=== PATIENT | male | born 1965 | race Caucasian/White ===

== ENCOUNTER 2017-05-01 11:32 | Emergency (ER) | payer OTHER ==
[2017-05-01 11:39] VITALS: BP 149/82
--- NOTE | 2017-05-01 12:15 | ED Physician Documentation ---
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 He gets occasional back spasms, very rarely though. He developed back spasm yesterday without specific inciting activity. It is in the low back and radiates across the back but not further, it does not radiate into the buttocks or the legs. There is no associated weakness, numbness, tingling, saddle anesthesia, or fevers. He tried naproxen which gave him partial but incomplete relief.) Review of Systems Constitutional: reports: Reviewed and negative Throat: reports: Reviewed and negative Cardiac: denies: Chest pain / pressure, Palpitations Respiratory: denies: Dyspnea, Cough GI: denies: Abdominal Pain, Nausea, Vomiting PD PAST MEDICAL HISTORY - Past Medical History Past Medical History: No - Past Surgical History Past Surgical History: No - Present Medications Home Medications: Ambulatory Orders Medication Instructions Recorded Confirmed Cyclobenzaprine [Flexeril] 10 mg PO TID PRN #14 tablet 05/01/17 HYDROcod/ACETAM 5/325 [[place] 5/325] 1 - 2 ea PO Q6H PRN #10 tablet 05/01/17 Naproxen 500 mg PO BID PRN #30 tablet 05/01/17 - Allergies Allergies/Adverse Reactions: Allergies Allergy/AdvReac Type Severity Reaction Status Date / Time No Known Drug Allergies Allergy Verified 05/01/17 11:38 - Social History Does the pt smoke?: No Smoking Status: Never smoker PD ED PE NORMAL - Vitals Vital signs reviewed: Yes - General General: Alert and oriented X 3, No acute distress - Abdomen Abdomen: Normal bowel sounds, Soft, Non tender - Back Back: No spinal TTP, Other (Palpable spasm in the right paralumbar musculature, no midline tenderness.) - Extremities Extremities: Other (The patient has equal and normal Achilles and patellar reflexes bilaterally. Normal sensation in all areas of the legs. Patient denies saddle anesthesia. Normal strength in flexion-extension at the ankles, knees, and flexion of the hips.) - Neuro Neuro: Alert and oriented X 3, Normal speech - Psych Psych: Normal mood, Normal affect Results - Vitals Vitals: Vital Signs - 24 hr 05/01/17 11:36 Temperature 36.4 C L Heart Rate 72 Respiratory 14 Rate Blood Pressure 149/82 H O2 Saturation 100 Oxygen O2 Source Room air PD MEDICAL DECISION MAKING - ED course ED course: The [place] prescription monitoring program was queried with regard to this patient. No concerning findings were found. This patient has seemingly uncomplicated musculoskeletal back pain. The patient has no "red flags." Specifically denies IV drug use, fevers, incontinence, saddle anesthesia. Spinal epidural abscess was considered, given that the patient has no fever, is not diabetic, has no spinal tenderness, does not use IV drugs, and has no bilateral neurologic symptoms, the diagnosis of spinal epidural abscess is considered exceedingly unlikely. Departure - Departure Disposition: 01 Home, Self Care Clinical Impression: Back spasm Condition: Good Record reviewed to determine appropriate education?: Yes Instructions: ED Low Back Pain Injury Prescriptions: Cyclobenzaprine [Flexeril] 10 mg PO TID PRN #14 tablet PRN Reason: Pain Naproxen 500 mg PO BID PRN #30 tablet PRN Reason: Pain HYDROcod/ACETAM 5/325 [[place] 5/325] 1 - 2 ea PO Q6H PRN #10 tablet PRN Reason: Pain Comments: Call your doctor to arrange a follow-up appointment, make the next available appointment. In the interim, return anytime if worse or if new symptoms develop. Your blood pressure was elevated today on check into the emergency department. This does not mean that you have hypertension, it is a common phenomenon to come to the emergency department and have elevated blood pressure. I recommend that she see your primary care physician within the week to have it rechecked when you are feeling better. Do not drink or drive while taking narcotic pain medication. Note that many narcotic pain relievers also contain Tylenol/acetaminophen. Please ensure that your total dose of acetaminophen from all sources does not exceed 3 g (3000 mg) per day. You may get constipated while on this medication. Take a stool softener such as Colace twice a day while you are on it. Also add an [id number] laxative such as senna or MiraLAX on any day that you do not have a bowel movement. If you received a narcotic pain medication or sedative while in the emergency department, do not drive for the next 24 hours. Forms: Activity restrictions
== END 2017-05-01 12:25 | disposition home or self-care (01) ==
LOC: ED 11:32
DX: M62.830 Muscle spasm of back (principal); M54.5 Low back pain; R03.0 Elevated blood-pressure reading, without diagnosis of hypertension
CPT/HCPCS: 99283

== ENCOUNTER 2019-10-03 14:54 | Outpatient (CLI) | payer OTHER ==
[2019-10-03 21:45] VITALS: BP 156/84
--- NOTE | 2019-10-03 21:45 | SLEEP CARE CONSULTATION ---
Information from patient questionnaire entered by Chelsey Garcia. I have reviewed and concur with the information entered by Chelsey Garcia. This document represents the service I personally performed and the decisions made by me, Jayson Tse MD, [facility]. History of Present Illness Reason for Visit: New patient Chief Complaint: reports: Snoring Duration of Symptoms: unknown Usual bedtime: varies with shift work Time it takes to fall asleep: 30 minutes Snores at night: Yes Observed to quit breathing while asleep: No Sleeps alone due to snoring: Yes Number of times waking at night: unknown Reasons for waking at night: reports: Bathroom Toss, Turn, or Twitch while sleeping: No Recalls having dreams: No (rarely) Usually gets out of bed at: varies, depending on shift work Morning headache: No Sleepy or fatigued during the day: No Ever fallen asleep while driving: No Takes day naps: No Dreams during day naps: No Prior sleep studies: No Additional HPI information: I had the pleasure of seeing Mr. Huitron today regarding the possibility of him having a sleep disorder. As you know, he is a 54 year old gentleman who complains of loud snore. He tried an oral appliance that did not work. The patient tells me that he normally goes to bed at variable times because he works shifts. It takes him approximately 30 minutes to fall asleep. He has been told that he snores loudly and irregularly at night. He has never been observed to stop breathing in his sleep. His has to sleep in a separate room. He can recall waking up on the average of 0 times during the night. He has never awakened because of his own snoring, choking, or having to gasp for air. There is not a lot of tossing and turning in his sleep. No somniloquy (sleep talking) or somnambulism (sleep walking). Generally there is no recollection of dreams. In the morning he usually gets up out of the bed at variable times, feeling netiher refreshed or rested. He usually does not have a morning headache. During the day he does not feel sleepy and fatigued. His score on [place] Sleepiness Scale is 10 out of 24. He has never fallen asleep while driving nor has had any accident due to sleepiness. He usually does not take naps during the day. Upon falling asleep during the day he denies having vivid dreams. He has never had sleep paralysis, experienced cataplexy or symptoms of restless leg syndrome. He denies having impaired concentration during the day. 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 Patient is and lives in [place]. Have you smoked in the past 12 months: No Alcohol use: Yes Alcohol amount and frequency: 1/month Caffeine amount and frequency: 3-4/day Allergies and Home Medications Drug allergies reviewed: Yes (NKDA) Home medication list reviewed: Yes (none) Review of Systems Weight gain over past 5 years: 15 Cardiovascular: denies: high blood pressure, palpitations, chest pain, irregular heart rate or pulse, leg or foot swelling, have to sleep sitting up, other Respiratory: denies: shortness of breath, wheeze, sputum production, chronic cough, other Gastrointestinal: denies: heartburn, difficulty swallowing, nausea, vomitting, diarrhea, abdominal pain, other Urinary: denies: incontinence, frequency, urgency, impotence, other Neurological: denies: headaches, seizure, head trauma, disorientation, speech dysfunction, gait or balance problems, fainting or unconsciousness, other Psychiatric: denies: Attention Deficit Hyperactivity, anxiety, depression, mood disorder, claustrophobia, other Ear/Nose/Throat: reports: nose bleeds Endocrine: denies: thyroid disease, history of goiter, sluggishness, too hot or cold, excessive thirst, increased appetite, increased urination, unexplained weakness, other Musculoskeletal: reports: joint pain Immunologic: denies: sneezing, rash, itching, allergies to food or environment, other Physical Exam Vital signs obtained and entered by: Dr. Tse Blood Pressure: 156/84 Cuff size: regular Heart Rate: 93 O2 Saturation: 99 Height: 5 ft 11 in Weight: 220 lb Body Mass Index: 30.7 BMI Classification: Obese Neck circumference: 16.5 Mood/affect: normal HEENT: No craniofacial malformation Nostrils: patent to airflow Turbinates: normal Septum: midline Mouth and throat: narrow oropharynx Soft palate: long Hard palate: normal Uvula: normal Uvula visualization: 25% Mallampati Class III Tongue: enlarged in size with teeth avila on lateral edges Tonsils: small Chin and jaw: normal size and position Neck: normal w/o lymphadenopathy or thyromegaly Heart: regular rate and rhythm Lungs: clear bilaterally Abdomen: soft, non-tender Extremities: 1+ edema Neurologic: intact, no focal deficits Impression and Plan IMPRESSION: 1. Obstructive Sleep Apnea-Hypopnea Syndrome, as suggested by history of loud and irregular snoring and unrefreshed sleep. Narrow oropharynx and obesity are common predisposing factors for obstructive sleep apnea-hypopnea syndrome. Untreated obstructive sleep apnea can also cause hypertension. Pathophysiology of sleep-disordered breathing was discussed. I recommend proceeding to polysomnography to confirm the diagnosis and to assess severity. If he has significant sleep disordered breathing, a manual CPAP titration study will also be performed to find the optimal treatment pressure. I informed the patient of what the sleep studies involve and after some discussion, he agreed to proceed. Plan: 1. Schedule an in-laboratory polysomnography + manual CPAP titration study 2. Avoid long distance driving or when feeling sleepy. 3. Avoid alcohol, sedative and muscle relaxant around bedtime. 4. Attempt to lose weight. 5. Return in 1 to 2 weeks after the study to discuss results and initiate therapy. I spent 100% of this visit face to face with the patient with greater than 50% of this was spent time counseling the patient and coordination of care.
== END 2019-10-03 14:55 | disposition home or self-care (01) ==
LOC: SC 14:54
PROVIDERS: ATTEND Internal Medicine Pulmonary Disease
DX: R06.83 Snoring (principal); G47.8 Other sleep disorders; E66.9 Obesity, unspecified; Z68.30 Body mass index [BMI] 30.0-30.9, adult
CPT/HCPCS: 99203; 99212

== ENCOUNTER 2019-10-18 20:49 | Outpatient (CLI) | payer OTHER | END 2019-10-18 20:50 | disposition home or self-care (01) | LOC: SC 20:49 | PROVIDERS: ATTEND Internal Medicine Pulmonary Disease | DX: G47.33 Obstructive sleep apnea (adult) (pediatric) (principal); E66.3 Overweight; Z68.30 Body mass index [BMI] 30.0-30.9, adult | CPT/HCPCS: 95810 ==

== ENCOUNTER 2019-12-06 15:28 | Outpatient (CLI) | payer OTHER ==
--- NOTE | 2019-12-06 13:59 | SLEEP CARE CONSULTATION ---
Information from patient questionnaire entered by Chelsey Garcia. I have reviewed and concur with the information entered by Chelsey Garcia. This document represents the service I personally performed and the decisions made by me, Emilee Patino, RN, MSN, [employer]. History of Present Illness Service Date and Time: 12/06/2019 1330 Initial [place] Sleepiness Scale score: 10 Current [place] Sleepiness Scale score: 5 (sleeping on side as much as can) Additional HPI information: TORI ROBERTSON had a video appointment to discus follow up and results of the recently performed polysomnography. I explained the pathophysiology behind obstructive sleep apnea. We then spent quite a bit of time discussing different treatment options. For mild obstructive sleep apnea, surgery and oral appliance are alternatives to nasal CPAP therapy but in moderate or severe cases, nasal CPAP is the most effective and reliable treatment. Because apnea is primarily in supine position, then positional management therapy could be effective. Methods discussed such as positioning with pillows, using a T-shirt with tennis balls in the back, and shown commercial products that have a pillow format on back to prevent supine sleep. I reviewed the impact of weight changes on sleep apnea and strongly recommended losing weight. After some discussion, the patient opted to go with the nasal CPAP therapy. Nasal autoCPAP set at [id number] will be ordered with rationale explained. A manual titration study will be ordered if unable to find optimal pressure with office adjustments. I explained how CPAP machine works and what to expect when using the machine. Using CPAP every night in order to get used to it was emphasized. Patient advised to put CPAP mask on before getting into bed so as not to fall asleep without CPAP. To assist acclimation to CPAP use, it could also be used for a short time during day while reading or watching TV. The patient was instructed to call the CPAP supplier to discuss any mechanical problem that may occur. If the mask given is uncomfortable or is difficult to keep on through the night even with adjustment, contact the CPAP supplier as many will replace with another mask style if notified before 30 days. If snoring or perceives is not getting enough air or too much air from the machine, notify this office. [facility] patient education PAP tips reviewed and will be sent to patient. Patient counseled not drink alcohol less than 4 hours before bedtime as it can increase snoring and apnea. Patient was cautioned about risks of drowsy driving until sleepiness symptoms resolve. Sleep Study - Results Polysomnography/Home Sleep Study results: The quality of the study is good. The patient had normal sleep efficiency. The sleep architecture was normal as well. Respiratory monitoring showed mild obstructive sleep apnea-hypopnea (AHI = 8.1) associated with oxyhemoglobin desaturation and mild hypoxia (faizan oxygen saturation of 84%) but not sleep fragmentation. The respiratory events occurred mainly during REM sleep (supine AHI = 18.2; non-supine = 2.52). Snore was light in intensity. There was no significant periodic leg movement of sleep. Cardiac rhythm was normal sinus rhythm without significant arrhythmia. No abnormal behavior (parasomnia) observed during the night. Allergies and Home Medications Home medication list reviewed: No (no medications) Review of Systems Review of systems same as previous: Yes Physical Exam Height: 5 ft 11 in Weight: 220 lb Body Mass Index: 30.7 BMI Classification: Obese Impression and Plan 1. Obstructive Sleep Apnea-Hypopnea Syndrome, mild, with lowest oxygen saturation of 84%. Obviously this is the cause of the patients symptoms of unrefreshed sleep, and excessive daytime sleepiness. Positive pressure therapy could benefit elevation of blood pressure noted in initial visit note. As mentioned above, the patient will be started on nasal autoCPAP therapy with pressure set at 4-15 cmH2O. A manual titration study will be completed if unable to find optimal treatment pressure with office adjustments. Compliance guidelines also reviewed. A copy of compliance guidelines will be sent to patient with PAP tips. He can obtain a copy of his sleep study from medical records. Because the apnea is more severe supine, I instructed to avoid sleeping supine using pillow positioning until able to start CPAP use. * Nasal auto CPAP therapy, pressure at 4-15 cm H2O. * Attempt to lose weight. * Avoid alcohol consumption near bedtime. * Avoid supine sleep until using CPAP. * The patient is again cautioned about driving until sleepiness completely resolves. * Return one month after CPAP obtained. I will assess response to therapy and compliance at that time. Visit Type: Telehealth Video (to minimize the risk of Covid 19 exposure) Video Type: [email or web address] Patient Location: Home Other Participants: Spouse/Significant Other Location of Provider: Office Patient agrees and consents to this telehealth visit type: Yes Patient agrees to have their insurance billed: Yes Time Spent with Patient (minutes): 20 Provider Statement: I spent 100% of the Telehealth Video Call with the patient with greater than 50% spent counseling the patient and coordination of care.
== END 2019-12-06 15:29 | disposition home or self-care (01) ==
LOC: SC 15:28
PROVIDERS: ATTEND Nurse Practitioner Family
DX: G47.33 Obstructive sleep apnea (adult) (pediatric) (principal); E66.9 Obesity, unspecified; Z68.30 Body mass index [BMI] 30.0-30.9, adult

== ENCOUNTER 2020-01-07 07:50 | Emergency (ER) | payer OTHER ==
--- NOTE | 2020-01-07 08:04 | ED Physician Documentation ---
PD HPI ABD PAIN - Stated complaint Stated Complaint: R UPPER ABD PX - History obtained from History obtained from: Patient - History of Present Illness Timing - onset: Other (54-year-old gentleman with no significant past medical history, no history of abdominal surgeries. He has had 2 days of mild right upper quadrant pain which is nonradiating. It is worse if he lays on his right side. It does not change with eating. No shortness of breath or chest pain. No nausea or changes in his bowel movements except noting mild constipation for the last month. No fevers.) Review of Systems Ten Systems: 10 systems reviewed and negative Constitutional: denies: Fever, Chills Cardiac: denies: Chest pain / pressure, Palpitations Respiratory: denies: Dyspnea, Cough GI: reports: Abdominal Pain. denies: Nausea, Diarrhea PD PAST MEDICAL HISTORY - Past Medical History Past Medical History: No - Past Surgical History Past Surgical History: No - Present Medications Home Medications: Ambulatory Orders Medication Instructions Recorded Confirmed No Known Home Medications 01/07/20 01/07/20 - Allergies Allergies/Adverse Reactions: Allergies Allergy/AdvReac Type Severity Reaction Status Date / Time No Known Drug Allergies Allergy Verified 01/07/20 08:09 - Living Situation Living Situation: reports: With spouse/s.o. - Social History Does the pt smoke?: No Smoking Status: Never smoker PD ED PE NORMAL - Vitals Vital signs reviewed: Yes - General General: Alert and oriented X 3, No acute distress - HEENT HEENT: PERRL, EOMI - Neck Neck: Supple, no meningeal sign, No bony TTP - Cardiac Cardiac: RRR, No murmur - Respiratory Respiratory: No respiratory distress, Clear bilaterally - Abdomen Abdomen: Other (Mild right upper quadrant tenderness with positive Butler sign, no guarding or rebound otherwise normal bowel tones.) - Back Back: No CVA TTP - Derm Derm: Normal color, Warm and dry - Extremities Extremities: No edema, No calf tenderness / cord - Neuro Neuro: Alert and oriented X 3, Normal speech Results - Vitals Vitals: Vital Signs - 24 hr 01/07/20 01/07/20 08:00 09:26 Temperature 36.7 C Heart Rate 79 76 Respiratory 18 16 Rate Blood Pressure 156/105 H 138/87 H O2 Saturation 97 96 Oxygen O2 Source Room air - Labs Labs: Laboratory Tests 01/07/20 01/07/20 01/07/20 08:00 08:00 09:21 WBC 6.9 RBC 5.28 Hgb 15.9 Hct 46.9 MCV 88.8 MCH 30.1 MCHC 33.9 RDW 12.5 Plt Count 227 MPV 10.8 Neut # (Auto) 4.5 Lymph # (Auto) 1.6 Mitchell # (Auto) 0.6 Eos # (Auto) 0.1 Baso # (Auto) 0.1 Absolute Nucleated RBC 0.00 Nucleated RBC % 0.0 Sodium 136 Potassium 3.7 Chloride 101 Carbon Dioxide 25 Anion Gap 10.0 BUN 16 Creatinine 1.1 Estimated GFR (MDRD) 69 L Glucose 119 H Calcium 9.1 Total Bilirubin 0.9 AST 21 ALT 32 Alkaline Phosphatase 69 Total Protein 7.8 Albumin 4.4 Globulin 3.4 Albumin/Globulin Ratio 1.3 Lipase 27 Urine Color YELLOW Urine Clarity CLEAR Urine pH 5.5 Ur Specific [place] 1.025 Urine Protein NEGATIVE Urine Glucose (UA) NEGATIVE Urine Ketones NEGATIVE Urine Occult Blood NEGATIVE Urine Nitrite NEGATIVE Urine Bilirubin NEGATIVE Urine Urobilinogen 0.2 (NORMAL) Ur Leukocyte Esterase NEGATIVE Ur Microscopic Review NOT INDICATED Urine Culture Comments NOT INDICATED - Rads (name of study) RUQ sono Radiology: EMP read contemporaneously (Gallstone in the neck without evidence of cholecystitis , Echogenic liver) PD MEDICAL DECISION MAKING - ED course ED course: 54-year-old gentleman with right upper quadrant pain. Minimally tender. No lab or imaging evidence of cholecystitis but it does look like he has a gallstone. No evidence that this needs to be removed urgently, declined pain medication. Departure - Departure Disposition: 01 Home, Self Care Clinical Impression: Biliary colic Condition: Good Record reviewed to determine appropriate education?: Yes Instructions: ED Gallstone W Biliary Colic Follow-Up: Babak Sylvester MD [Provider Admit Priv/Credential] - Comments: Your labs are normal, there is a large gallstone in your gallbladder so I suspect it is your gallbladder that is bothering you. You need to follow-up with a surgeon to discuss having her gallbladder out if the pain becomes serious return for reevaluation.
[2020-01-07 08:27] LABS: BASOPHILS # (AUTO) 0.1 10^3/uL (0.0-0.1); BASOPHILS % (AUTO) 0.7 %; EOSINOPHILS # (AUTO) 0.1 10^3/uL (0.0-0.7); EOSINOPHILS % (AUTO) 1.3 %; HGB - HEMOGLOBIN 15.9 g/dL (14.0-18.0); LYMPHOCYTES # (AUTO) 1.6 10^3/uL (1.5-3.5); LYMPHOCYTES % (AUTO) 23.2 %; MEAN CORPUSCULAR HEMOGLOBIN 30.1 pg (27.0-31.0); MEAN CORPUSCULAR HGB CONC 33.9 g/dL (32.0-36.0); MEAN CORPUSCULAR VOLUME 88.8 fL (80.0-94.0); MEAN PLATELET VOLUME 10.8 fL (7.4-11.4); MONOCYTES # (AUTO) 0.6 10^3/uL (0.0-1.0); NEUTROPHILS # (AUTO) 4.5 10^3/uL (1.5-6.6); NEUTROPHILS % (AUTO) 65.5 %; PLT - PLATELET COUNT 227 10^3/uL (130-450); RED BLOOD COUNT 5.28 10^6/uL (4.70-6.10); RED CELL DISTRIBUTION WIDTH 12.5 % (12.0-15.0); WHITE BLOOD COUNT 6.9 x10^3/uL (4.8-10.8)
[2020-01-07 08:45] LABS: ALBUMIN 4.4 g/dL (3.2-5.5); ALBUMIN/GLOBULIN RATIO 1.3 (1.0-2.2); BILIRUBIN,TOTAL 0.9 mg/dL (0.2-1.0); CALCIUM 9.1 mg/dL (8.5-10.3); CREATININE 1.1 mg/dL (0.6-1.2); TOTAL PROTEIN 7.8 g/dL (6.7-8.2)
[2020-01-07 09:28] VITALS: BP 138/87
[2020-01-07 09:32] LABS: BILIRUBIN,URINE NEGATIVE (NEGATIVE); GLUCOSE, URINE (UA) NEGATIVE (NEGATIVE); KETONES,URINE (UA) NEGATIVE (NEGATIVE); LEUKOCYTE ESTERASE, URINE NEGATIVE (NEGATIVE); NITRITE,URINE NEGATIVE (NEGATIVE); OCCULT BLOOD,URINE NEGATIVE (NEGATIVE); PH,URINE 5.5 PH (5.0-7.5); PROTEIN,URINE NEGATIVE (NEGATIVE); UROBILINOGEN,URINE 0.2 (NORMAL) E.U./dL (NORMAL)
[2020-01-07 09:33] LABS: CLARITY,URINE CLEAR (CLEAR)
--- NOTE | 2020-01-07 09:48 | Ultrasound Report ---
Reason: RUQ pain Procedure Date: 01/07/2020 Accession Number: [id number] / [id number] Procedure: US - Abdomen Limited CPT Code: Final Report FULL RESULT: EXAM: ABDOMEN ULTRASOUND LIMITED, RUQ EXAM DATE: 01/07/2020 08:12 AM. CLINICAL HISTORY: RUQ pain. COMPARISON: None. TECHNIQUE: Real-time scanning was performed with static images obtained. FINDINGS: Liver: There is diffuse increased hepatic echogenicity. This results in acoustic attenuation, limiting sensitivity for detection of liver lesions. In addition, portions of the hepatic dome are obscured by shadowing from the patient's lungs. Right hepatic lobe measures 15.1 cm, which is within normal limits. Main portal vein flow: Hepatopetal. Gallbladder: There is an 8 mm rounded, echogenic structure in the gallbladder neck, suggestive of a gallstone. However, no gallbladder distention, wall thickening, or pericholecystic fluid demonstrated. Sonographic Butler sign is negative. Biliary System: CBD measures 5 mm. No intrahepatic or extrahepatic ductal dilatation. Other: The visualized portions of the pancreas are unremarkable. The head, distal body, and tail are obscured by overlying bowel gas. The right kidney measures 11.9 cm longitudinally. No hydronephrosis. IMPRESSION: 1. Suggestion of an 8 mm gallstone in the gallbladder neck. No sonographic evidence for acute cholecystitis. 2. Diffusely increased hepatic echogenicity, which is a nonspecific finding but is most commonly seen as sequela of hepatic steatosis. RAD[facility]
== END 2020-01-07 09:56 | disposition home or self-care (01) ==
LOC: ED 07:50
DX: K80.50 Calculus of bile duct without cholangitis or cholecystitis without obstruction (principal)
CPT/HCPCS: 36415; 76705; 80053; 81001; 81003; 83690; 85025; 87086; 99284

== ENCOUNTER 2020-02-28 14:05 | Outpatient (CLI) | payer OTHER ==
--- NOTE | 2020-02-28 13:49 | SLEEP CARE CONSULTATION ---
Information from patient questionnaire entered by Basilia Giles. I have reviewed and concur with the information entered by Basilia Giles. This document represents the service I personally performed and the decisions made by me, Emilee Patino, RN, MSN, DRAPERY COUNSELOR. History of Present Illness Service Date and Time: 02/28/2020 1300 Previous diagnosis: Mild, Obstructive Sleep Apnea-Hypopnea Syndrome AHI: 8.1 (in 2019) Reason for follow up: first compliance Equipment type: CPAP Equipment obtained from: Other ([facility]) Mask style: Full face Backup mask available: No (keep current mask as spare when replaced ) Last cushion change: not since set up Prior sleep studies: Yes Year and Where: 2019 - [facility] [employer] [facility] Sleep CPAP Compliance Data - Data Reviewed with Patient Average duration of nightly device use: 7.95 Compliance rate %: 93.3 Current pressure setting (cmH2O): 4-15 Humidity settin Heated hose settin Average residual AHI: 3.5 Average large leak: 42 mins 38 sec Subjective Patient concerns: reports: condensation in mask/hose. denies: aerophagia, mask discomfort, air blowing in eyes, mask leak noise, nasal congestion, dry mouth, nose, throat, epistaxis Observed to snore while using device: Yes (intermittently ) On therapy, patient: reports: sleeping better (less night time awakenings , also sleeping better), being more awake and alert during the day, more rested overall. denies: drowsiness while driving Initial [place] Sleepiness Scale score: 10 (in 2019) Allergies and Home Medications Known drug allergies: No Home medication list reviewed: No (no changes ) Review of Systems Review of systems same as previous: No (cholestectomy 01/30/20 ) Physical Exam Height: 5 ft 11 in Weight: 215 lb (lost 5 pounds ) Body Mass Index: 29.9 BMI Classification: Overweight Impression and Plan 1. Obstructive Sleep Apnea-Hypopnea Syndrome, mild , with good treatment compliance and good apnea control. On CPAP therapy, the patient has better sleep quality and is more rested overall. For his snore, I will change his autoCPAP range to [id number]. If this pressure is uncomfortable or does not resolve snore , he is to notify me. He is advised to adjust mask slightly for mask leaks and update cushion. The cushion can be changed monthly and filter twice a month. Since he is moving in March to [place], he is to contact his [employer] company to ensure no problem with getting supplies. If there is a problem, he will have to wait until he sees a new sleep provider to transfer to new company. After move he is to set up with new sleep provider for continuity of care and rationale explained. We also discussed rationale for changing the humidity and heated hose for new weather he will be encountering. In addition, we discussed how his weight affects his apnea severity and CPAP pressure requirements. Patient has lost weight. Currently patients BMI is 29.9 obesity class . Obesity increases the risk of apnea, CPAP pressure requirements and overall health risks especially cardiovascular and diabetes. Thus patient is advised to continue to lose weight. A diet consultation can be helpful in achieving optimal weight loss goals. Patient encouraged to discuss their weight loss goals with their PCP and consider a referral to a data processing specialist. The patient's CPAP pressure range should accommodate some weight loss. Symptoms to report for additional pressure adjustment discussed. Patient's apnea severity and rationale for treatment to reduce apnea, improve sleep quality and reduce cardiovascular and cerebrovascular events was reviewed. I also reviewed the benefit of consistent device use of CPAP for hypertension. Since patient has more severe apnea in supine position, patient advised to avoid supine sleep with pillow positioning if unable to use CPAP while ill or if without electricity to reduce apnea risk. * * Changeauto CPAP pressure to 7-12 cmH2O * Notify me if snoring with mask or feeling that the pressure is too much or too little * Continue to lose weight * Call this office if any problems using CPAP * transfer to new sleep provider after move. Visit Type: Telehealth Video Video Type: INTERNET BUSINESS TRADER Time Spent with Patient (minutes): 17 Provider Statement: I spent 100% of the Telehealth Video Call with the patient with greater than 50% spent counseling the patient and coordination of care.
== END 2020-02-28 14:06 | disposition home or self-care (01) ==
LOC: SC 14:05
PROVIDERS: ATTEND Nurse Practitioner Family
DX: G47.33 Obstructive sleep apnea (adult) (pediatric) (principal); E66.3 Overweight; Z68.29 Body mass index [BMI] 29.0-29.9, adult